=== PATIENT | female | born 1990 | race Caucasian/White ===

== ENCOUNTER 2022-04-05 14:50 | Outpatient (CLI) | payer OTHER | END 2022-04-05 14:51 | disposition home or self-care (01) | LOC: LAB 14:50 | PROVIDERS: ATTEND Registered Nurse | DX: Z33.1 Pregnant state, incidental (principal) | CPT/HCPCS: 36415; 84702 ==

== ENCOUNTER 2022-04-08 14:47 | Outpatient (CLI) | payer OTHER | END 2022-04-08 14:48 | disposition home or self-care (01) | LOC: LAB.S 14:47 | PROVIDERS: ATTEND Registered Nurse | DX: Z33.1 Pregnant state, incidental (principal) | CPT/HCPCS: 36415; 84702 ==

== ENCOUNTER 2022-04-13 13:39 | Outpatient (CLI) | payer OTHER | END 2022-04-13 13:40 | disposition home or self-care (01) | LOC: LAB.S 13:39 | PROVIDERS: ATTEND Registered Nurse | DX: Z33.1 Pregnant state, incidental (principal) | CPT/HCPCS: 36415; 84702 ==

== ENCOUNTER 2022-05-11 11:43 | Outpatient (CLI) | payer OTHER ==
[2022-05-11 12:05] LABS: BASOPHILS % (AUTO) 0.5 %; EOSINOPHILS # (AUTO) 0.1 10^3/uL (0.0-0.7); EOSINOPHILS % (AUTO) 1.6 %; HCT - HEMATOCRIT 36.6 % (37.0-47.0); HGB - HEMOGLOBIN 12.6 g/dL (12.0-16.0); LYMPHOCYTES % (AUTO) 26.1 %; MEAN CORPUSCULAR HEMOGLOBIN 30.8 pg (27.0-31.0); MEAN CORPUSCULAR HGB CONC 34.4 g/dL (32.0-36.0); MEAN CORPUSCULAR VOLUME 89.5 fL (81.0-99.0); MEAN PLATELET VOLUME 10.2 fL (7.9-10.8); MONOCYTES # (AUTO) 0.5 10^3/uL (0.0-1.0); MONOCYTES % (AUTO) 6.2 %; NEUTROPHILS % (AUTO) 65.3 %; PLT - PLATELET COUNT 212 10^3/uL (130-450); RED BLOOD COUNT 4.09 10^6/uL (4.20-5.40); RED CELL DISTRIBUTION WIDTH 11.6 % (12.0-15.0); WHITE BLOOD COUNT 7.7 x10^3/uL (4.8-10.8)
[2022-05-12 05:10] LABS: HBsAG SCREEN Negative (Negative)
[2022-05-12 07:10] LABS: RPR Non Reactive (Non Reactive)
[2022-05-12 08:10] LABS: VARICELLA-ZOSTER AB IGG 1852 index (Immune >165)
[2022-05-12 10:09] LABS: HCV AB <0.1 s/co ratio (0.0-0.9)
[2022-05-13 00:07] LABS: HIV SCREEN 4TH GENERATION Non Reactive (Non Reactive)
== END 2022-05-11 11:44 | disposition home or self-care (01) ==
LOC: LAB 11:43
PROVIDERS: ATTEND Nurse Practitioner Obstetrics & Gynecology
DX: Z36.89 Encounter for other specified antenatal screening (principal)
CPT/HCPCS: 36415; 85025; 86592; 86762; 86787; 86803; 86850; 86900; 86901; 87340; 87389

== ENCOUNTER 2022-07-16 14:43 | Outpatient (CLI) | payer OTHER ==
--- NOTE | 2022-07-17 03:48 | Ultrasound Report ---
PROCEDURE: OB Detailed Eval INDICATIONS: SUPERVISION OF OUTSIDE/PRIOR DATING DATA: Last menstrual period (LMP): 02/25/2022. LMP-based estimated date of delivery (MALIK): 12/02/2022. First dating scan (date and location): 04/23/2022. Estimated date of delivery (MALIK) from first dating scan: 12/01/2022. The below data below was generated using the working MALIK of 12/01/2022 TECHNIQUE: Real-time scanning was performed of the fetus, with image documentation and biometric measurements. COMPARISON: None available. FINDINGS: General: A single living intrauterine gestation is present. Presentation: Variable Placenta: Placental position is anterior, without previa. The inferior margin of the placenta extend ing to 0.9 cm from the internal cervical os compatible with a low-lying placenta. Amniotic fluid index: 14.1 cm, within normal limits for gestational age. Largest pocket: 3.7 cm. heart rate: 157 beats per minute. Maternal cervical canal: 5.1 cm long; normal length is 2.5 cm or more. biometrics: Biparietal diameter: 5.0 cm, 21 weeks 1 day Head circumference: 18.8 cm, 21 weeks 1 day Abdominal circumference: 15.0 cm, 20 weeks 2 days Femur length: 3.4 cm, 20 weeks 4 days Estimated gestational age from initial scan: 20 weeks 2 days. Composite gestational age from present scan: 20 weeks 4 days Estimated weight and percentile: 357 g, 57th percentile Measurement variability in biometric dating: +/- 10 days from 12-20 weeks gestation, +/- 2 weeks from 20-30 weeks gestation, +/- 3 weeks at 30 weeks gestation or later. Anatomic survey: Neuro: Ventricles are normal at less than 10 mm. Cisterna magna is normal at 3-11 mm. Cerebellum i s normal in size and morphology. Nuchal skin fold: Normal at less than 6 mm between 14 and 20 weeks gestational age. Face: Nose and lips, facial profile are normal. Spine: No evidence for spina bifida. Heart: 4-chambered heart is present, with normal ventricular outflow tracts. Diaphragm: Diaphragm is intact. Stomach: Left-sided stomach is present. Kidneys: No hydronephrosis. Normal is less than 5 mm in 2nd trimester, less than 7 mm in 3rd trimester. Cord: 3 vessel cord has orthotopic insertion. Bladder: Normal in size. Extremities: All 4 extremities are visualized. IMPRESSION: 1. Single living intrauterine demonstrating appropriate interval growth with estimated feta l weight at the 57th percentile. 2. No definite abnormalities identified on anatomic survey. 3. Low-lying anterior placenta noted. Reviewed by: Raul Singh MD on 07/17/2022 3:46 AM PST Approved by: Raul Singh MD on 07/17/2022 3:46 AM PST Station ID: [id number]
== END 2022-07-16 14:44 | disposition home or self-care (01) ==
LOC: DI 14:43
PROVIDERS: ATTEND Nurse Practitioner Obstetrics & Gynecology
DX: Z36.89 Encounter for other specified antenatal screening (principal); O44.42 Low lying placenta NOS or without hemorrhage, second trimester; Z3A.20 20 weeks gestation of pregnancy

== ENCOUNTER 2022-07-21 13:53 | Outpatient (CLI) | payer OTHER ==
[2022-07-21 14:15] LABS: HCT - HEMATOCRIT 34.1 % (37.0-47.0); HGB - HEMOGLOBIN 11.6 g/dL (12.0-16.0); MEAN CORPUSCULAR HEMOGLOBIN 31.4 pg (27.0-31.0); MEAN CORPUSCULAR VOLUME 92.4 fL (81.0-99.0); RED BLOOD COUNT 3.69 10^6/uL (4.20-5.40); RED CELL DISTRIBUTION WIDTH 12.8 % (12.0-15.0); WHITE BLOOD COUNT 9.2 x10^3/uL (4.8-10.8)
== END 2022-07-21 13:54 | disposition home or self-care (01) ==
LOC: LAB 13:53
PROVIDERS: ATTEND Nurse Practitioner Obstetrics & Gynecology
DX: O36.8320 Maternal care for abnormalities of the fetal heart rate or rhythm, second trimester, not applicable or unspecified (principal)
CPT/HCPCS: 36415; 85027